=== PATIENT | male | born 1950 | race Caucasian/White ===

== ENCOUNTER 2019-04-06 17:00 | Emergency (ER) | payer OTHER, MEDICARE ==
[~2019-04-06] VITALS: Ht 182 cm; Wt 89.0 kg
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
[2019-04-06 18:03] VITALS: BP 143/88
== END 2019-04-06 18:03 | disposition home or self-care (01) ==
LOC: EDUNIT# 17:00 → ER 17:02
DX: S50.11XA Contusion of right forearm, initial encounter (principal); V59.40XA Driver of pick-up truck or van injured in collision with unspecified motor vehicles in traffic accident, initial encounter
CPT/HCPCS: 99282